=== PATIENT | male | born 1965 | race Caucasian/White ===

== ENCOUNTER 2024-02-04 09:33 | Emergency (ER) | payer MEDICAID ==
[~2024-02-04] VITALS: Ht 172.7 cm; Wt 108.9 kg
[2024-02-04 09:50] VITALS: O2SAT 99
[2024-02-04] MEDS: IBUPROFEN 800MG TABLET PO ONE (11:12)
[2024-02-04] MEDS: ACETAMINOPHEN 325MG TABLET PO ONE (11:12)
[2024-02-04] MEDS: HYDROCODONE/ACETAMINOPHEN 10/325MG TABLET PO ONE (11:26)
[2024-02-04] MEDS: KETOROLAC 30MG/ML VIAL IM ONE (11:27)
[2024-02-04] MEDS ORDERED: CYCL5TAB MT (11:34)
[2024-02-04] MEDS ORDERED: DICL75TA5 MT (11:34)
[2024-02-04 11:45] VITALS: BP 142/87; PULSE 72; RESP 18; TEMP 98.3
== END 2024-02-04 11:46 | disposition home or self-care (01) ==
LOC: ER 09:33
DX: M54.50 Low back pain, unspecified (principal); W18.30XA Fall on same level, unspecified, initial encounter; Y93.89 Activity, other specified; Y92.89 Other specified places as the place of occurrence of the external cause; Y99.8 Other external cause status
CPT/HCPCS: 99284; 72100; 96372; J1885